=== PATIENT | female | born 1990 | race Caucasian/White ===

== ENCOUNTER 2022-06-12 16:15 | Emergency (ER) | payer OTHER ==
[~2022-06-12] VITALS: Ht 165.1 cm; Wt 72.6 kg
[2022-06-12] MEDS ORDERED: CODE10LI PO (17:02)
[2022-06-12] MEDS ORDERED: NAPR500T6 PO (17:02)
[2022-06-12] MEDS ORDERED: ONDA4TAB11 PO (17:02)
[2022-06-12] MEDS ORDERED: ALBU18HF2 INH (17:02)
[2022-06-12] MEDS ORDERED: PRED20TA PO (17:02)
--- NOTE | 2022-06-12 17:11 | NUR ---
Patient discharged to home in stable condition with brisk steady gait. Written and verbal after care instructions given. Patient verbalized understanding and compliance of instructions. Stressed follow up with primary doctor or return to ER for worsening s/s.
[2022-06-12] MEDS ORDERED: D-ME473S47 PO (17:47)
== END 2022-06-12 17:11 | disposition home or self-care (01) ==
LOC: ER 16:15
DX: J10.1 Influenza due to other identified influenza virus with other respiratory manifestations (principal); R05.9 Cough, unspecified
CPT/HCPCS: 71045; A4663